=== PATIENT | female | born 1970 | race Two or more races ===

== ENCOUNTER → 2019-03-24 | Emergency (ER) | payer OTHER ==
[~2019-03-24] VITALS: Ht 162.6 cm; Wt 77.1 kg
[~2019-03-24] MED LIST: OSEL75CA PO; TRAMADOL HCL50 MG PO; TUSSI PRES-B L120 M1 PO
== END | disposition home or self-care (01) ==
LOC: ER 14:55
DX: D25.9 Leiomyoma of uterus, unspecified (principal); R10.2 Pelvic and perineal pain